=== PATIENT | male | born 1945 | race Caucasian/White ===

== ENCOUNTER 2017-11-14 21:55 | Emergency (ER) | payer MEDICARE ==
[2017-11-14 22:08] VITALS: BP 204/119
--- NOTE | 2017-11-14 22:18 | ED Physician Documentation ---
PD HPI SKIN - Stated complaint Stated Complaint: RASH - Chief complaint Chief Complaint: Wound - History obtained from History obtained from: Patient - History of Present Illness Timing - onset: How many days ago (4) Timing - duration: Days (4) Timing - details: Gradual onset Pain level max: 0 Pain level now: 0 Location: [place] Quality / character: Itchy, Swelling Improved by: Benadryl Worsened by (comment): COMMENT (nothing) Contributing factors: Exposed to medication (started after taking bactrim) - Additional information Additional information: Patient is a 72-year-old male who states that he had redness and swelling to the right hand and forearm last week. [facility] and started [facility] Bactrim. Took that for 2 days and then started to develop rashes across his body and sores in his mouth. He stopped the Bactrim at that point, was reevaluated by the [facility] and started on Keflex. He was also prescribed prednisone but has not started that. He states that Benadryl does seem to help the rash and that it does not itch. The rash also moves. Review of Systems Constitutional: denies: Fever Nose: denies: Rhinorrhea / runny nose, Congestion Throat: denies: Sore throat Cardiac: denies: Chest pain / pressure Respiratory: denies: Dyspnea, Cough GI: denies: Nausea, Vomiting, Diarrhea Musculoskeletal: denies: Neck pain, Back pain Neurologic: denies: Headache PD PAST MEDICAL HISTORY - Past Medical History Past Medical History: Yes Cardiovascular: Hypertension, High cholesterol Respiratory: None Endocrine/Autoimmune: None GI: GI bleed : Benign prostate hypertrophy HEENT: Other Psych: None Musculoskeletal: Other Derm: Psoriasis - Past Surgical History Past Surgical History: No - Present Medications Home Medications: Ambulatory Orders Medication Instructions Recorded Confirmed Aspirin [Aspir 81] 01/30/13 01/30/13 Gabapentin [Gralise] 300 mg PO 3-4XD 01/30/13 01/30/13 Lisinopril 20 mg PO QPM 01/30/13 01/30/13 Lisinopril 40 mg PO QAM 01/30/13 01/30/13 Simvastatin [Zocor] 60 mg HS 01/30/13 01/30/13 predniSONE [Deltasone] 10 mg PO [id number] #42 tab 10/10/18 - Allergies Allergies/Adverse Reactions: Allergies Allergy/AdvReac Type Severity Reaction Status Date / Time Cephalosporins AdvReac Intermediate Respiratory Verified 01/30/13 04:24 dipyridamole [From Aggrenox] AdvReac Headache Verified 01/30/13 04:25 - Social History Does the pt smoke?: No Smoking Status: Never smoker Does the pt drink ETOH?: Yes Does the pt have substance abuse?: No - Immunizations Immunizations are current?: No - POLST Patient has POLST: No PD ED PE NORMAL - Vitals Vital signs reviewed: Yes - General General: Alert and oriented X 3, No acute distress - HEENT HEENT: Moist mucous membranes, Pharynx benign (No intraoral lesions) - Neck Neck: Supple, no meningeal sign - Cardiac Cardiac: RRR, Strong equal pulses - Respiratory Respiratory: No respiratory distress, Clear bilaterally - Abdomen Abdomen: Soft, Non tender, Non distended - Derm Derm: Warm and dry - Extremities Extremities: Other (Diffuse urticaria to the bilateral upper extremities and bilateral lower extremities. He also has a lesion on the right anterior thigh that is approximately 1 cm in diameter with scaling to the top of it. He states that is been there for several months. The urticaria priscilla easily.) - Neuro Neuro: Alert and oriented X 3 Results - Vitals Vitals: Vital Signs - 24 hr 11/14/17 22:01 Temperature 36.6 C Heart Rate 106 H Respiratory 17 Rate Blood Pressure 204/119 H O2 Saturation 99 Oxygen O2 Source Room air PD MEDICAL DECISION MAKING - ED course Complexity details: considered differential, d/w patient ED course: Patient is a 72-year-old male who presents to the emergency department what appears to be urticaria. This is likely secondary to the Bactrim he was taking. Will place on a steroid taper and see how he progresses. He is well-appearing, nontoxic. Afebrile. Will also have him follow-up with his doctor for a biopsy of the lesion on his leg as this appears potentially suspicious for squamous or basal cell carcinoma. Patient counseled regarding signs and symptoms for which I believe and urgent re-evaluation would be necessary. Patient with good understanding of and agreement to plan and is comfortable going home at this time This document was made in part using voice recognition software. While efforts are made to proofread this document, sound alike and grammatical errors may occur. - Sepsis Event Vital Signs: Vital Signs - 24 hr 11/14/17 22:01 Temperature 36.6 C Heart Rate 106 H Respiratory 17 Rate Blood Pressure 204/119 H O2 Saturation 99 Oxygen O2 Source Room air Departure - Departure Disposition: 01 Home, Self Care Clinical Impression: Urticaria Condition: Good Instructions: ED Urticaria Follow-Up: your,doctor in 1 week [Other] Prescriptions: predniSONE [Deltasone] 10 mg PO [id number] #42 tab Comments: Take the steroids until gone. Return if you worsen. This appears to be a reaction to the sulfa. You should also have the lesion on your leg biopsied, this can be done by your doctor or by a pneumatic press hand. Discharge Date/Time: 11/14/17 22:24
== END 2017-11-14 22:24 | disposition home or self-care (01) ==
LOC: ED 21:55
DX: L50.9 Urticaria, unspecified (principal); L98.9 Disorder of the skin and subcutaneous tissue, unspecified; I10 Essential (primary) hypertension; Z79.82 Long term (current) use of aspirin
CPT/HCPCS: 99283

== ENCOUNTER 2022-09-01 22:59 | Emergency (ER) | payer MEDICARE ==
[2022-09-01 23:42] LABS: BASOPHILS # (AUTO) 0.1 10^3/uL (0.0-0.1); BASOPHILS % (AUTO) 1.2 %; EOSINOPHILS # (AUTO) 0.2 10^3/uL (0.0-0.7); HCT - HEMATOCRIT 42.4 % (42.0-52.0); HGB - HEMOGLOBIN 14.2 g/dL (14.0-18.0); LYMPHOCYTES # (AUTO) 1.9 10^3/uL (1.5-3.5); LYMPHOCYTES % (AUTO) 27.3 %; MEAN CORPUSCULAR HEMOGLOBIN 30.1 pg (27.0-31.0); MEAN CORPUSCULAR HGB CONC 33.5 g/dL (32.0-36.0); MEAN CORPUSCULAR VOLUME 89.8 fL (80.0-94.0); MEAN PLATELET VOLUME 9.5 fL (7.4-11.4); MONOCYTES # (AUTO) 0.6 10^3/uL (0.0-1.0); MONOCYTES % (AUTO) 9.3 %; NEUTROPHILS % (AUTO) 58.9 %; PLT - PLATELET COUNT 293 10^3/uL (130-450); RED BLOOD COUNT 4.72 10^6/uL (4.70-6.10); RED CELL DISTRIBUTION WIDTH 12.1 % (12.0-15.0); WHITE BLOOD COUNT 6.8 x10^3/uL (4.8-10.8)
--- NOTE | 2022-09-01 23:46 | XRAY Report ---
PROCEDURE: Chest 1 View X-Ray INDICATIONS: Chest pain TECHNIQUE: One view of the chest was acquired. COMPARISON: Correlation is made with prior chest CT, 01/30/2013 FINDINGS: Surgical changes and devices: None. Lungs and pleura: No pleural effusions or pneumothorax. Lungs are clear. Mediastinum: The aorta is prominent and tortuous. The cardiac contours are within normal limits. Bones and chest wall: No suspicious bony lesions. Age-appropriate degenerative changes are seen. Overlying soft tissues appear unremarkable. IMPRESSION: Portable chest within normal limits for age. Reviewed by: Dylan Hunter MD on 09/01/2022 10:46 PM RAJANI Approved by: Dylan Hunter MD on 09/01/2022 10:46 PM AKHELGA Station ID: [id number]
[2022-09-01 23:53] LABS: ALBUMIN 4.8 g/dL (3.2-5.5); ALBUMIN/GLOBULIN RATIO 1.9 (1.0-2.2); BILIRUBIN,TOTAL 1.2 mg/dL (0.2-1.0); CALCIUM 9.1 mg/dL (8.5-10.3); POTASSIUM 3.4 mmol/L (3.5-5.0); TOTAL PROTEIN 7.3 g/dL (6.7-8.2)
--- NOTE | 2022-09-02 01:13 | ED Physician Documentation ---
PD HPI CHEST PAIN - Stated complaint Stated Complaint: HIGH BLOOD PRESSURE - Chief complaint Chief Complaint: Cardiac - History obtained from History obtained from: Patient - Additional information Additional information: HPI from patient. Patient complains of episodic chest pain for the past 2 days. Describes the pain as a sensation of pressure across the anterior chest. The initial onset of the pain was associated with heavy exertional activity/exercise, associate with shortness of breath, and relieved within 10 to 15 minutes of cessation of the exertional activity. However, he has had recurrence of the same symptoms with heavy exertional activity since the onset. He says he does not have the symptoms with light activity such as ambulation. He denies history of similar symptoms. He says that, due to peripheral neuropathy, exercise and heavy exertional activity is very unusual for him. He also notes high blood pressure readings over the past 2 days; systolic blood pressure ranging from 160s to 210s with diastolic blood pressures in the 80s to 100s. He does not regularly check his blood pressure, but started doing so over the past 2 days due to the chest pain. The patient says that he had a stress test approximately 25 years ago that was abnormal, leading to a cardiac catheterization. Patient says that he had a 30% blockage of one coronary artery, and was told this was not significant enough to require intervention such as stent. He had another stress test approximately 8 years ago and, although abnormal, the abnormalities were no different than the previous study, and thus no further testing nor intervention was undertaken. Patient is asymptomatic at the time of this HPI. Review of Systems Constitutional: reports: Reviewed and negative Cardiac: reports: Chest pain / pressure. denies: Palpitations, Pedal edema Respiratory: reports: Dyspnea (episodic (not present at the time of this H+P)) GI: reports: Reviewed and negative Musculoskeletal: reports: Reviewed and negative PD PAST MEDICAL HISTORY - Past Medical History Cardiovascular: Hypertension, High cholesterol Respiratory: None Endocrine/Autoimmune: None GI: GI bleed : Benign prostate hypertrophy HEENT: Other Psych: None Musculoskeletal: Other Derm: Psoriasis - Past Surgical History Past Surgical History: No - Present Medications Home Medications: Ambulatory Orders Medication Instructions Recorded Confirmed Lisinopril [Zestril] 10 mg PO DAILY 09/02/22 09/02/22 - Allergies Allergies/Adverse Reactions: Allergies Allergy/AdvReac Type Severity Reaction Status Date / Time Cephalosporins AdvReac Intermediate Respiratory Verified 09/01/22 23:03 dipyridamole [From Aggrenox] AdvReac Headache Verified 09/01/22 23:03 - Social History Does the pt smoke?: No Smoking Status: Never smoker Does the pt drink ETOH?: Yes Does the pt have substance abuse?: No - Immunizations Immunizations are current?: No - POLST Patient has POLST: No PD ED PE NORMAL - Vitals Vital signs reviewed: Yes - General General: Alert and oriented X 3, No acute distress, Well developed/nourished - Cardiac Cardiac: RRR (occasional extra beats which correlate with PACs on school bus monitor), No murmur - Respiratory Respiratory: No respiratory distress, Clear bilaterally - Abdomen Abdomen: Soft, Non tender - Derm Derm: Normal color, Warm and dry - Extremities Extremities: No edema - Neuro Neuro: Alert and oriented X 3 Results - Vitals Vitals: Vital Signs - 24 hr 09/01/22 09/01/22 09/02/22 23:03 23:28 01:03 Temperature 36.5 C Heart Rate 92 75 74 Respiratory 16 18 18 Rate Blood Pressure 200/86 H 180/82 H 194/82 H O2 Saturation 99 97 100 09/02/22 09/02/22 09/02/22 01:30 02:32 02:52 Temperature Heart Rate 66 63 64 Respiratory 16 18 16 Rate Blood Pressure 215/86 H 178/88 H 178/88 H O2 Saturation 97 100 99 09/02/22 09/02/22 09/02/22 03:25 04:00 05:00 Temperature 36.5 C Heart Rate 81 67 79 Respiratory 15 17 16 Rate Blood Pressure 210/87 H 181/88 H 198/91 H O2 Saturation 100 98 100 09/02/22 09/02/22 09/02/22 06:00 07:00 10:10 Temperature Heart Rate 68 70 72 Respiratory 18 18 15 Rate Blood Pressure 177/80 H 171/84 H 187/89 H O2 Saturation 99 99 100 Oxygen O2 Source Room air - EKG (time done) #1 EKG releavant findings:: EKG personally interpreted by author of this note. Relevant findings are: Rate: Rate (enter#) (72) Rhythm: NSR [place]: Normal Intervals: Normal ME QRS: Normal Ischemia: Non specific changes (Q wave isolated to V3, borderline ST elevation isolated to V3; biphasic T waves V3-V5, inverted T III, flat T aVF) #2 EKG releavant findings:: EKG personally interpreted by author of this note. Relevant findings are: Rate: Rate (enter#) (64) Rhythm: NSR [place]: Normal Intervals: Normal ME QRS: Normal Ischemia: Non specific changes (QIII; deep S waves V2, V3; borderline ST elevation limited to V3; biphasic T waves V3-V5, inverted T III, flat T aVF) - Labs Labs: Laboratory Tests 09/01/22 09/01/22 09/01/22 23:33 23:33 23:33 WBC 6.8 RBC 4.72 Hgb 14.2 Hct 42.4 MCV 89.8 MCH 30.1 MCHC 33.5 RDW 12.1 Plt Count 293 MPV 9.5 Neut # (Auto) 4.0 Lymph # (Auto) 1.9 [place] # (Auto) 0.6 Eos # (Auto) 0.2 Baso # (Auto) 0.1 Absolute Nucleated RBC 0.00 Nucleated RBC % 0.0 Sodium 136 Potassium 3.4 L Chloride 102 Carbon Dioxide 24 Anion Gap 10.0 BUN 10 Creatinine 1.0 Estimated GFR (MDRD) 72 L Glucose 111 H Calcium 9.1 Total Bilirubin 1.2 H AST 18 ALT 19 Alkaline Phosphatase 74 Troponin I High Sens 19.8 H* Total Protein 7.3 Albumin 4.8 Globulin 2.5 Albumin/Globulin Ratio 1.9 Lipase 73 H 09/02/22 02:04 WBC RBC Hgb Hct MCV MCH MCHC RDW Plt Count MPV Neut # (Auto) Lymph # (Auto) [place] # (Auto) Eos # (Auto) Baso # (Auto) Absolute Nucleated RBC Nucleated RBC % Sodium Potassium Chloride Carbon Dioxide Anion Gap BUN Creatinine Estimated GFR (MDRD) Glucose Calcium Total Bilirubin AST ALT Alkaline Phosphatase Troponin I High Sens 41.3 H* Total Protein Albumin Globulin Albumin/Globulin Ratio Lipase - Rads (name of study) chest xray Relevant Findings:: Prelim report reviewed, See rad report PD Medical Decision Making - ED course Complexity details: reviewed results, re-evaluated patient, considered differential, d/w patient ED course: Patient's description of symptoms is concerning for new onset of angina. No acute findings on EKG, but nonspecific abnormalities as documented above. Patient's initial troponin is patient's initial troponin is 19.8, with the upper limit of normal being 19.7. He is asymptomatic on presentation as well as throughout the remainder of his ED stay. EKG was repeated 2 hours after the initial EKG without significant change (what appeared to be an isolated Q wave in V3 now appears to be a deep S wave). Unfortunately, his 2-hour repeat troponin is 41.3, representing significant change; in the setting of patient's symptom description, suspicion is now strong for NSTEMI. Per d/w patient regarding preferences for which hospital to transfer him to, calls were placed to [facility], then [facility], then [facility]. There are no beds available at these facilities. I then spoke with Dr. Garcia (cardiology second vp hr assessment at [facility]) who agrees patient is appropriate for transfer to [facility] if beds available; in addition to the heparin that I have already initiated (note that patient had taken four baby ASA BOX [employer]INGE [employer] LOCK [employer]), he recommends PO atorvastatin, PO metroprolol 25mg, and plavix 300mg (these are subsequently ordered and given). I then spoke with Dr. Georges, hospitalist at [facility], who accepts patient for transfer, as beds are available. Departure - Departure Disposition: 02 Transfer Acute Care Hosp Clinical Impression: NSTEMI (non-ST elevated myocardial infarction) Condition: Stable Forms: PCP List Discharge Date/Time: 09/02/22 10:25
[2022-09-02] MEDS ORDERED: lisinopriL 5 MG TABLET PO STA (01:35)
[2022-09-02] MEDS ORDERED: HEPARIN 25000UNITS/500ML (D5W) 25,000 UNIT/500 ML BAG IV SCH (05:00)
[2022-09-02] MEDS ORDERED: METOPROLOL TARTRATE 50 MG TABLET PO STA (08:31)
[2022-09-02] MEDS ORDERED: ATORVASTATIN 40 MG TABLET PO STA (08:31)
[2022-09-02] MEDS ORDERED: CLOPIDOGREL 300 MG TABLET PO STA (08:32)
[2022-09-02 10:14] VITALS: BP 187/89
== END 2022-09-02 10:25 | disposition short-term general hospital (02) ==
LOC: ED 22:59
DX: I21.4 Non-ST elevation (NSTEMI) myocardial infarction (principal); I10 Essential (primary) hypertension; E78.00 Pure hypercholesterolemia, unspecified; Z79.899 Other long term (current) drug therapy
CPT/HCPCS: 36415; 71045; 80053; 83690; 84484; 85025; 93005; 96374; 99285; A9270; 85730

== ENCOUNTER 2022-09-02 10:30 | Outpatient (CLI) | payer MEDICARE | END 2022-09-02 23:59 | disposition short-term general hospital (02) | LOC: EMS 10:30 | PROVIDERS: ATTEND Emergency Medicine | DX: I21.4 Non-ST elevation (NSTEMI) myocardial infarction (principal) | CPT/HCPCS: A0425; A0426 ==

== ENCOUNTER 2022-10-01 14:40 | Outpatient (CLI) | payer MEDICARE | END 2022-10-01 14:41 | disposition other institution (70) | LOC: EMS 14:40 | DX: R31.0 Gross hematuria (principal); Z96.0 Presence of urogenital implants | CPT/HCPCS: A0425; A0429 ==

== ENCOUNTER 2022-10-01 15:03 | Emergency (ER) | payer MEDICARE ==
[2022-10-01] MEDS ORDERED: SODIUM CHLORIDE 0.9% 1,000 ML IV STA (15:10)
[2022-10-01] MEDS ORDERED: LABETALOL 20 MG/4 ML SYRINGE IVP STA (15:10)
[2022-10-01 15:11] VITALS: O2SAT 99
--- NOTE | 2022-10-01 15:12 | ED Physician Documentation ---
History of Present Illness - Stated complaint Stated Complaint: LIGHTHEADED/DIZZY - Chief complaint Chief Complaint: General - History obtained from History obtained from: Patient - Additonal information Additional information: 77-year-old gentleman who was seen by my partner late last month and had rising cardiac enzymes and was sent to [place] where he subsequently had a four- vessel bypass. During the perioperative time he developed urinary retention and a Puckett was placed which he has had since September 06. He did follow-up with urology 5 days ago at [place] and failed a voiding test/postvoid residual and the catheter was replaced and he was placed on tamsulosin with plan to have a voiding trial again after about a month of the tamsulosin. Starting today he developed gross hematuria without pain or clots and was worried about his blood pressure at home. PD PAST MEDICAL HISTORY - Past Medical History Cardiovascular: Hypertension, High cholesterol Respiratory: None Endocrine/Autoimmune: None GI: GI bleed : Benign prostate hypertrophy HEENT: Other Psych: None Musculoskeletal: Other Derm: Psoriasis - Past Surgical History Past Surgical History: No - Present Medications Home Medications: Ambulatory Orders Medication Instructions Recorded Confirmed Lisinopril [Zestril] 10 mg PO DAILY 09/02/22 09/02/22 Ciprofloxacin [Cipro] 250 mg PO Q12H #20 tablet 10/01/22 - Allergies Allergies/Adverse Reactions: Allergies Allergy/AdvReac Type Severity Reaction Status Date / Time Cephalosporins AdvReac Intermediate Respiratory Verified 10/01/22 15:09 dipyridamole [From Aggrenox] AdvReac Headache Verified 10/01/22 15:09 - Social History Does the pt smoke?: No Smoking Status: Never smoker Does the pt drink ETOH?: Yes Does the pt have substance abuse?: No - Immunizations Immunizations are current?: No - POLST Patient has POLST: No PD ED PE NORMAL - Vitals Vital signs reviewed: Yes - General General: Alert and oriented X 3, No acute distress - Cardiac Cardiac: RRR, No murmur - Respiratory Respiratory: No respiratory distress, Clear bilaterally - Abdomen Abdomen: Non tender - Male Male : Other (He has a Puckett in place, the urine is ravinder colored but not opaque. No clots.) - Extremities Extremities: No edema, No calf tenderness / cord - Neuro Neuro: Alert and oriented X 3, Normal speech Results - Vitals Vitals: Vital Signs - 24 hr 10/01/22 10/01/22 10/01/22 15:06 15:44 15:49 Temperature 36.3 C L Heart Rate 62 53 L 56 L Respiratory 16 Rate Blood Pressure 181/84 H 165/69 H 162/65 H O2 Saturation 99 10/01/22 16:09 Temperature Heart Rate 53 L Respiratory Rate Blood Pressure 161/67 H O2 Saturation Oxygen O2 Source Room air - Labs Labs: Laboratory Tests 10/01/22 10/01/22 10/01/22 15:22 15:22 15:24 WBC 7.2 RBC 3.68 L Hgb 10.8 L Hct 34.2 L MCV 92.9 MCH 29.3 MCHC 31.6 L RDW 13.7 Plt Count 439 MPV 9.1 Neut # (Auto) 4.7 Lymph # (Auto) 1.5 [place] # (Auto) 0.5 Eos # (Auto) 0.4 Baso # (Auto) 0.1 Absolute Nucleated RBC 0.00 Nucleated RBC % 0.0 Sodium 137 Potassium 4.1 Chloride 104 Carbon Dioxide 25 Anion Gap 8.0 BUN 15 Creatinine 1.1 Estimated GFR (MDRD) 65 L Glucose 103 Calcium 9.8 Urine Color LT RED Urine Clarity HAZY Urine pH 7.0 Ur Specific [place] <=1.005 Urine Protein TRACE Urine Glucose (UA) NEGATIVE Urine Ketones NEGATIVE Urine Occult Blood LARGE H Urine Nitrite NEGATIVE Urine Bilirubin NEGATIVE Urine Urobilinogen 0.2 (NORMAL) Ur Leukocyte Esterase TRACE H Urine RBC 6-10 H Urine WBC 0-3 Ur Squamous Epith Cells NONE SEEN Urine Bacteria Few Ur Microscopic Review INDICATED Urine Culture Comments INDICATED PD Medical Decision Making - ED course ED course: 77-year-old gentleman presents with hematuria, not opaque and no clots in the setting of Puckett catheter in place and recent changing of his Puckett catheter and being less than a month out from four-vessel coronary bypass. Work-up in the emergency department showed CBC with hemoglobin drop from 14-10.8, but he had had a four-vessel bypass in the interim. Renal function normal, urinalysis with concern for mild infection, will start Cipro pending follow-up. Departure - Departure Disposition: 01 Home, Self Care Clinical Impression: Catheter cystitis Qualifiers: Encounter type: initial encounter Qualified Code(s): T83.518A - Infection and inflammatory reaction due to other urinary catheter, initial encounter; N30.90 - Cystitis, unspecified without hematuria Condition: Good Record reviewed to determine appropriate education?: Yes Instructions: ED UTI Cystitis Male Prescriptions: Ciprofloxacin [Cipro] 250 mg PO Q12H #20 tablet Comments: Mild signs of infection in the urine associate with blood, my suspicion is you have a catheter associated urinary infection. You should call your urologist and see if they would like to see you sooner than previously planned. In the meantime I did send your prescription electronically to the [facility] in [place]. We will culture your urine, the results should be done in 48-72 hours. If an antibiotic change is necessary we will call you. Return if worse in the meantime, especially if you develop increasing flank pain, fevers, or cannot keep down the medication. Forms: PCP List
[2022-10-01 15:26] LABS: BASOPHILS # (AUTO) 0.1 10^3/uL (0.0-0.1); BASOPHILS % (AUTO) 1.3 %; EOSINOPHILS # (AUTO) 0.4 10^3/uL (0.0-0.7); EOSINOPHILS % (AUTO) 5.3 %; HCT - HEMATOCRIT 34.2 % (42.0-52.0); HGB - HEMOGLOBIN 10.8 g/dL (14.0-18.0); LYMPHOCYTES # (AUTO) 1.5 10^3/uL (1.5-3.5); LYMPHOCYTES % (AUTO) 20.3 %; MEAN CORPUSCULAR HEMOGLOBIN 29.3 pg (27.0-31.0); MEAN CORPUSCULAR HGB CONC 31.6 g/dL (32.0-36.0); MEAN CORPUSCULAR VOLUME 92.9 fL (80.0-94.0); MEAN PLATELET VOLUME 9.1 fL (7.4-11.4); MONOCYTES # (AUTO) 0.5 10^3/uL (0.0-1.0); MONOCYTES % (AUTO) 7.4 %; NEUTROPHILS # (AUTO) 4.7 10^3/uL (1.5-6.6); NEUTROPHILS % (AUTO) 65.1 %; PLT - PLATELET COUNT 439 10^3/uL (130-450); RED BLOOD COUNT 3.68 10^6/uL (4.70-6.10); RED CELL DISTRIBUTION WIDTH 13.7 % (12.0-15.0); WHITE BLOOD COUNT 7.2 x10^3/uL (4.8-10.8)
[2022-10-01 15:39] LABS: BILIRUBIN,URINE NEGATIVE (NEGATIVE); GLUCOSE, URINE (UA) NEGATIVE (NEGATIVE); KETONES,URINE (UA) NEGATIVE (NEGATIVE); LEUKOCYTE ESTERASE, URINE TRACE (NEGATIVE); NITRITE,URINE NEGATIVE (NEGATIVE); OCCULT BLOOD,URINE LARGE (NEGATIVE); PROTEIN,URINE TRACE mg/dL (NEGATIVE); UROBILINOGEN,URINE 0.2 (NORMAL) E.U./dL (NORMAL)
[2022-10-01 15:39] LABS: CALCIUM 9.8 mg/dL (8.5-10.3); CREATININE 1.1 mg/dL (0.6-1.3); POTASSIUM 4.1 mmol/L (3.5-4.5)
[2022-10-01 15:46] LABS: CLARITY,URINE HAZY (CLEAR)
[2022-10-01 15:55] LABS: BACTERIA,URINE Few /HPF (None Seen); SQUAMOUS EPITHELIAL CELL,UR NONE SEEN (<= Few); WBC,URINE 0-3 /HPF (0-3)
[2022-10-01 16:11] VITALS: BP 161/67
[2022-10-01] MEDS ORDERED: CIPROFLOXACIN 250 MG TABLET PO STA (16:20)
== END 2022-10-01 17:02 | disposition home or self-care (01) ==
LOC: EDUNIT# → ED 15:03
DX: T83.518A Infection and inflammatory reaction due to other urinary catheter, initial encounter (principal); N39.0 Urinary tract infection, site not specified; I10 Essential (primary) hypertension
CPT/HCPCS: 36415; 80048; 81001; 85025; 87077; 87086; 87181; 96374; 99283; A9270; 81003

== ENCOUNTER 2022-10-25 08:00 | Outpatient (CLI) | payer MEDICARE ==
[2022-10-25 19:48] LABS: BILIRUBIN,URINE NEGATIVE (NEGATIVE); GLUCOSE, URINE (UA) NEGATIVE (NEGATIVE); KETONES,URINE (UA) NEGATIVE (NEGATIVE); LEUKOCYTE ESTERASE, URINE SMALL (NEGATIVE); NITRITE,URINE POSITIVE (NEGATIVE); OCCULT BLOOD,URINE LARGE (NEGATIVE); PH,URINE 5.5 PH (5.0-7.5); PROTEIN,URINE NEGATIVE (NEGATIVE); UROBILINOGEN,URINE 0.2 (NORMAL) E.U./dL (NORMAL)
[2022-10-25 19:57] LABS: BACTERIA,URINE Moderate /HPF (None Seen); CLARITY,URINE SL. CLOUDY (CLEAR); SQUAMOUS EPITHELIAL CELL,UR FEW Squamous (<= Few); YEAST,URINE PRESENT
== END 2022-10-25 23:59 | disposition home or self-care (01) ==
LOC: LAB.S 08:00
PROVIDERS: ATTEND Internal Medicine
DX: N39.0 Urinary tract infection, site not specified (principal)
CPT/HCPCS: 81001; 87077; 87086; 87181